=== PATIENT | male | born 1985 | race Caucasian/White ===

== ENCOUNTER 2021-07-13 17:30 | Emergency (ER) | payer BC ==
[~2021-07-13] VITALS: Ht 182.9 cm; Wt 86.2 kg
[~2021-07-13 17:30] MED LIST: ZOFRAN4 MG PO
== END 2021-07-13 21:20 | disposition home or self-care (01) ==
LOC: ER1 17:30
DX: U07.1 COVID-19 (principal); Z23 Encounter for immunization
CPT/HCPCS: 99283; M0245